=== PATIENT | male | born 1960 | race Caucasian/White ===

== ENCOUNTER 2022-12-17 09:52 | Outpatient (OUT) | payer BC, SELFPAY | END 2022-12-17 09:53 | LOC: WC 09:53 | PROVIDERS: PCP Family Medicine; Visit Provider Podiatrist Foot & Ankle Surgery | DX: S91.001D Unspecified open wound, right ankle, subsequent encounter (principal); L97.519 Non-pressure chronic ulcer of other part of right foot with unspecified severity | CPT/HCPCS: 10060; 36415; 80048; 85025; 85652; 86140; 87070; 87205; A6213 ==

== ENCOUNTER 2022-12-17 11:31 | Outpatient (OUT) | payer BC, SELFPAY ==
[2022-12-17 12:26] LABS: Basophils Absolute Auto 0.1 10^3/uL (0.0-0.1); Basophils Percent Auto 0.6 % (0.2-2.0); Eosinophils Absolute Auto 0.1 10^3/uL (0.0-0.7); Hematocrit 38.5 % (42.0-54.0); Hemoglobin 11.8 g/dL (14.0-18.0); Immature Granulocytes Abs Auto 0.04 10^3/uL (0.00-0.03); Immature Granulocytes Pct Auto 0.5 % (0.0-0.5); Lymphocytes Absolute Auto 1.3 10^3/uL (1.2-3.8); Lymphocytes Percent Auto 14.8 % (20.5-60.0); Mean Corpuscular HGB Conc 30.6 g/dL (29.9-35.2); Mean Corpuscular Hemoglobin 25.1 pg (25.9-34.0); Mean Corpuscular Volume 81.9 fL (80.0-94.0); Mean Platelet Volume 9.5 fL (9.5-13.5); Monocytes Absolute Auto 0.9 10^3/uL (0.3-0.8); Monocytes Percent Auto 10.2 % (1.7-12.0); Neutrophils Absolute Auto 6.3 10^3/uL (1.4-6.5); Neutrophils Percent Auto 72.9 % (43.0-75.0); Platelet Count 375 10^3/uL (150-450); Red Cell Distribution Width 14.6 % (11.0-15.0); White Blood Count 8.6 10^3/uL (4.0-11.0)
[2022-12-17 12:30] LABS: Anion Gap 10.9; BUN Creatinine Ratio 17.3; C Reactive Protein 54.3 mg/dL (<=1.0); Calcium 9.6 mg/dL (8.5-10.1); Carbon Dioxide 29.5 mmol/L (21.0-32.0); Chloride 104 mmol/L (98-107); Estimated GFR (African America >60 (>=60); Estimated GFR (Non-African Ame >60 (>=60); Glucose 96 mg/dL (74-106); Potassium 4.4 mmol/L (3.5-5.1); Sodium 140 mmol/L (136-145)
[2022-12-17 12:57] LABS: Erythrocyte Sedimentation Rate 121 mm/hr (<=20)
== END 2022-12-17 11:32 ==
LOC: LAB 11:34
PROVIDERS: PCP Family Medicine; Visit Provider Student in an Organized Health Care Education/Training Program
DX: L97.519 Non-pressure chronic ulcer of other part of right foot with unspecified severity (principal)
CPT/HCPCS: 36415; 80048; 85025; 85652; 86140; 87070; 87205; A6213

== ENCOUNTER 2022-12-22 10:00 | Outpatient (OUT) | payer BC, SELFPAY | END 2022-12-22 10:01 | LOC: WC 10:00 | PROVIDERS: PCP Family Medicine; Visit Provider Podiatrist Foot & Ankle Surgery | DX: L97.512 Non-pressure chronic ulcer of other part of right foot with fat layer exposed (principal); M06.9 Rheumatoid arthritis, unspecified; M20.11 Hallux valgus (acquired), right foot; M19.071 Primary osteoarthritis, right ankle and foot; M86.471 Chronic osteomyelitis with draining sinus, right ankle and foot; M76.821 Posterior tibial tendinitis, right leg; R60.0 Localized edema; R26.89 Other abnormalities of gait and mobility | CPT/HCPCS: 99212; G0463 ==

== ENCOUNTER 2022-12-24 10:05 | Outpatient (OUT) | payer BC, SELFPAY ==
--- NOTE | 2022-12-24 10:09 | CT_ITS ---
[place] [id number] Patient Name: ANDRE WIGGINS MRN: [id number] date: 1960 Sex: M Assigned Patient Location: CT Current Patient Location: CT Accession/Order Number: [id number] Exam Date: 12/24/2022 10:25 Report Date: 12/24/2022 15:56 At the request of: MARCIA ISABEL Procedure: CT ankle RT wo con EXAMINATION: CT ankle RT wo con HISTORY: Broken Hardware T84.213 COMPARISON: XR ankle right 12/09/2022, CT ankle right 09/25/2022 TECHNIQUE: Multi-planar CT images were created without IV contrast. Dose reduction techniques were achieved by using automated exposure control and/or adjustment of mA and/or kV according to patient size and/or use of iterative reconstruction technique. FINDINGS: BONES: Advanced destructive changes of the ankle joint, hindfoot, and midfoot. Prosthetic spacer replacing the talus. Mechanical fusion of ankle joint via dorsal plate which is fractured at site of third screw from the cephalad margin fracture and displacement of the fifth screw from the cephalad margin. Intact screw securing the plate to the calcaneus. Advanced sclerotic changes and cortical thickening of the distal tibia and fibula. SOFT TISSUES: Prominent soft tissue edema surrounding the distal lower extremity, ankle, and proximal foot. EFFUSION: None visible. OTHER: Negative. IMPRESSION: 1. Grossly stable advanced degenerative changes of the ankle, hindfoot, midfoot. 2. Fracture of the posterior plate and one of the screws bridging the posterior tibia-calcaneus. Electronically authenticated by: HAIDER ERWIN Date: 12/24/2022 15:56
== END 2022-12-24 10:06 ==
LOC: CT 10:06
PROVIDERS: Visit Provider Podiatrist Foot & Ankle Surgery
DX: T84.213A Breakdown (mechanical) of internal fixation device of bones of foot and toes, initial encounter (principal)
CPT/HCPCS: 73700

== ENCOUNTER 2023-01-11 10:04 | Outpatient (OUT) | payer BC, SELFPAY | END 2023-01-11 10:05 | disposition home or self-care (01) | LOC: WC 10:04 | PROVIDERS: Visit Provider Podiatrist Foot & Ankle Surgery | DX: M86.471 Chronic osteomyelitis with draining sinus, right ankle and foot (principal); M19.071 Primary osteoarthritis, right ankle and foot; S91.001D Unspecified open wound, right ankle, subsequent encounter; M25.771 Osteophyte, right ankle; M20.11 Hallux valgus (acquired), right foot; M76.821 Posterior tibial tendinitis, right leg; M13.80 Other specified arthritis, unspecified site; R60.0 Localized edema; R26.89 Other abnormalities of gait and mobility; I10 Essential (primary) hypertension; M06.9 Rheumatoid arthritis, unspecified; L97.512 Non-pressure chronic ulcer of other part of right foot with fat layer exposed | CPT/HCPCS: A6213; G0463 ==

== ENCOUNTER 2023-02-16 10:03 | Outpatient (OUT) | payer BC, SELFPAY ==
--- NOTE | 2023-02-16 | XR_ITS ---
The [address] [address] Patient Name: ANDRE WIGGINS MRN: [id number] date: 1960 Sex: M Assigned Patient Location: [facility] Current Patient Location: [facility] Accession/Order Number: [id number] Exam Date: 02/16/2023 10:10 Report Date: 02/16/2023 11:04 At the request of: MARCIA ISABEL Procedure: XR ankle RT min 3V PROCEDURE: XR ankle RT min 3V HISTORY: RIGHT ANKLE PAIN ; postop fusion revision COMPARISON: XR ankle right 12/09/2022 FINDINGS: BONES:Mechanical fusion of the ankle joint via posterior plate and screws; fracture of the plate and one of the screws, and slight backing out of the second most distal screw. Prosthetic spacer replacing the talus. Complete collapse of the plantar arch and advanced degenerative/destructive changes of the midfoot. SOFT TISSUES:Prominent soft tissue swelling surrounding the ankle. EFFUSION:None visible. OTHER: Negative. XR/XR ankle RT min 3V IMPRESSION: 1. Grossly stable advanced degenerative changes and stable hardware failure. Electronically authenticated by: HAIDER ERWIN Date: 02/16/2023 11:04
== END 2023-02-16 10:04 | disposition home or self-care (01) ==
PROVIDERS: Visit Provider Podiatrist Foot & Ankle Surgery
DX: M19.071 Primary osteoarthritis, right ankle and foot (principal)
CPT/HCPCS: 73610

== ENCOUNTER 2023-02-21 10:08 | Outpatient (OUT) | payer BC, SELFPAY ==
--- NOTE | 2023-02-21 10:18 | CT_ITS ---
The [address] [address] Patient Name: ANDRE WIGGINS MRN: [id number] date: 1960 Sex: M Assigned Patient Location: CT Current Patient Location: CT Accession/Order Number: [id number] Exam Date: 02/21/2023 10:37 Report Date: 02/21/2023 11:51 At the request of: ELTON MARQUES Procedure: CT ankle RT wo con CT scan right ankle without contrast 02/21/2023. HISTORY:Chronic right ankle pain since undergoing surgery on the ankle in December 2021. Pseudarthrosis after fusion M96.0 COMPARISON: The scan right ankle 09/25/2022 and 12/24/2022 and radiographs right ankle 11/17/2022 and 02/16/2023. TECHNIQUE: Multiple contiguous axial CT images of the right ankle were obtained without contrast. Sagittal and coronal reformatted images were made. Dose reduction techniques were achieved by using automated exposure control and/or adjustment of mA and/or kV according to patient size and/or use of iterative reconstruction technique. FINDINGS: There are postsurgical changes again seen from prior resection of the lateral malleolus. There is osseous fusion again seen across the majority of the distal tibiofibular syndesmosis. There are postsurgical changes again seen from prior posterior fusion surgery across the posterior aspect of the ankle at the level of the distal tibia with the posterior calcaneus. However, there is redemonstration of disruption of the orthopedic plate at the level the distal tibial metaphysis and there are large areas of lucency again seen surrounding the distal 2 screws within the distal tibial metadiaphysis and there are large lucencies also seen surrounding the 2 screws within the posterior calcaneus. There is redemonstration of a fracture of one of the screws in the distal tibial metadiaphysis. A pes planovalgus deformity is again seen. There is redemonstration 7of prior resection of the majority of the talus and the majority of the navicular. There is a large ovoid radiopaque spacer again seen interposed between the distal tibia and the remaining portion of the calcaneus. There is no significant osseous fusion between the distal tibia and the calcaneus. There is redemonstration of osseous fusion across the majority of the calcaneocuboid joint. There are moderate to severe degenerative changes again seen at the articulation of the navicular with the cuneiform bones. There is moderate to severe joint space narrowing again seen of the first tarsometatarsal joint and there is a similar appearance of partial osseous fusion across approximately 10% of this joint. There is a large plantar calcaneal enthesophyte again seen. There is diffuse soft tissue swelling again seen surrounding the ankle. The distal Achilles tendon is again not clearly visualized beyond the level of the distal tibial diaphysis. Since the prior CT scan there has been development of an ovoid low-density collection posterior to the distal tibial metadiaphysis. This measures 2.0 x 3.6 x 3.9 cm in AP, transverse and craniocaudal dimension respectively. This is best seen on the soft tissue window images. There is a similar appearance of diffuse chronic periosteal reaction surrounding the distal tibial metadiaphysis and distal fibular diaphysis and metadiaphysis. CT/CT ankle RT wo con IMPRESSION: 1. Since the prior CT scan of 12/24/2022 there has been development of an ovoid low-density collection posterior to the distal tibial metadiaphysis with measurements provided above. Differential diagnostic considerations for this collection primarily include an abscess or seroma. Correlation as to possible signs and symptoms of an infection in this region is recommended. 2. There is a similar appearance of failure of the fusion hardware along the posterior aspect of the distal tibia with the posterior calcaneus with loosening of multiple screws involving the distal tibia and the calcaneus as described above. There is no significant osseous fusion between the distal tibia and the calcaneus. 3. There is a similar appearance of other postsurgical and degenerative changes of the remainder of the midfoot/ankle as described above. 4. 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 This report was placed in the wet read folder to be faxed and called to the referring clinician's office (Elton Marques) on the afternoon of 02/21/2023 shortly after the study was presented for interpretation. Electronically authenticated by: CAROLINA DEMPSEY Date: 02/21/2023 11:51
== END 2023-02-21 10:09 | disposition home or self-care (01) ==
LOC: CT 10:09
PROVIDERS: Visit Provider Podiatrist Foot & Ankle Surgery
DX: M96.0 Pseudarthrosis after fusion or arthrodesis (principal)
CPT/HCPCS: 73700

== ENCOUNTER 2023-03-03 10:15 | Outpatient (OUT) | payer BC, SELFPAY ==
--- NOTE | 2023-03-03 | XR_ITS ---
The [address] [address] Patient Name: ANDRE WIGGINS MRN: [id number] date: 1960 Sex: M Assigned Patient Location: RAD Current Patient Location: Accession/Order Number: [id number] Exam Date: 03/03/2023 13:10 Report Date: 03/04/2023 01:39 At the request of: DENIS TRAN Procedure: XR foot RT min 3V PROCEDURE: XR ankle RT min 3V, XR foot RT min 3V HISTORY: RIGHT ANKLE PAIN COMPARISON: XR ankle right 02/16/2023 FINDINGS: BONES:Prior mechanical fusion of the ankle joint via dorsal plate and screws with known fracture of the plate and the fifth screw from the top. The proximal portion of the fractured screw is now displaced from the plate Posteriorly. Stable mild backing out of the sixth screw from the top. Prosthetic spacer replacement of the talus, unchanged. Advanced degenerative changes the midfoot and complete collapse of plantar arch. SOFT TISSUES:Soft tissue swelling surrounding the ankle and proximal foot; increased since prior study. EFFUSION:None visible. OTHER: Negative. XR/XR foot RT min 3V IMPRESSION: 1. Further progression of hardware failure as detailed above. 2. Increased soft tissue swelling; edema versus inflammatory. Chronic advanced degenerative changes of the midfoot. Electronically authenticated by: HAIDER ERWIN Date: 03/04/2023 01:39
--- NOTE | 2023-03-03 | XR_ITS ---
The [address] [address] Patient Name: ANDRE WIGGINS MRN: [id number] date: 1960 Sex: M Assigned Patient Location: [facility] Current Patient Location: Accession/Order Number: [id number] Exam Date: 03/03/2023 13:10 Report Date: 03/04/2023 01:39 At the request of: DENIS TRAN Procedure: XR ankle RT min 3V PROCEDURE: XR ankle RT min 3V, XR foot RT min 3V HISTORY: RIGHT ANKLE PAIN COMPARISON: XR ankle right 02/16/2023 FINDINGS: BONES:Prior mechanical fusion of the ankle joint via dorsal plate and screws with known fracture of the plate and the fifth screw from the top. The proximal portion of the fractured screw is now displaced from the plate Posteriorly. Stable mild backing out of the sixth screw from the top. Prosthetic spacer replacement of the talus, unchanged. Advanced degenerative changes the midfoot and complete collapse of plantar arch. SOFT TISSUES:Soft tissue swelling surrounding the ankle and proximal foot; increased since prior study. EFFUSION:None visible. OTHER: Negative. XR/XR ankle RT min 3V IMPRESSION: 1. Further progression of hardware failure as detailed above. 2. Increased soft tissue swelling; edema versus inflammatory. Chronic advanced degenerative changes of the midfoot. Electronically authenticated by: HAIDER ERWIN Date: 03/04/2023 01:39
== END 2023-03-03 10:16 | disposition home or self-care (01) ==
LOC: RAD 10:16
PROVIDERS: Visit Provider Physician Assistant
DX: L02.611 Cutaneous abscess of right foot (principal); M19.071 Primary osteoarthritis, right ankle and foot; M79.671 Pain in right foot
CPT/HCPCS: 73610; 73630; 87070; 87150; 87186; 87205

== ENCOUNTER 2023-03-03 14:25 | Observation (INO) | payer BC, SELFPAY ==
--- NOTE | 2023-03-03 14:31 | ED.GENADUL1 ---
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 Patient was seeing his local foot and ankle specialist for swelling and pain to the right ankle. He had his most recent surgery for revision of her right ankle replacement one year ago. He states in the last week he has had increasing pain and swelling. No fevers or vomiting. He has no history of diabetes. He had a seroma drained in the office with wound cultures obtained. He was referred to the Emergency Room for IV placement, antibiotics and admission for further evaluation and treatment per podiatry consult. Patient has no pain at this time, he is comfortable on arrival to the Emergency Room. Related Data Home Medications Medication Instructions Recorded Confirmed allopurinol 100 mg tablet 100 mg PO DAILY 03/03/23 03/03/23 celecoxib 200 mg capsule 200 mg PO BID 03/03/23 03/03/23 cephalexin 500 mg capsule 500 mg PO Q12H 03/03/23 03/03/23 metoprolol succinate 50 mg 75 mg PO DAILY 03/03/23 03/03/23 tablet,extended release 24 hr tamsulosin 0.4 mg capsule 0.4 mg PO BEDTIME 03/03/23 03/03/23 tramadol 50 mg tablet 50 mg PO Q8H PRN pain 03/03/23 03/03/23 Allergies Allergy/AdvReac Type Severity Reaction Status Date / Time Penicillins Allergy Unknown Unknown Verified 03/03/23 14:45 Review of Systems ROS Constitutional Denies: fever or chills Cardiovascular Denies: chest pain Respiratory Denies: shortness of breath or cough Gastrointestinal Denies: nausea or vomiting Musculoskeletal Denies: back pain Integumentary/Breast Denies: rash Hematologic/Lymphatic Denies: easy bruising Allergic/Immunologic Denies: hives Exam Narrative Exam Narrative: Gen.: Awake, alert, in no distress Head: Normocephalic, atraumatic ENT: Moist mucous membranes Respiratory: No respiratory distress Extremities: Right ankle with dressing in place, well-healed surgical incision to the right anterior ankle, no redness or red streaking of the ankle. Mild serous drainage noted through the dressing. Patient is able to wiggle the toes. Psych: Normal mood and affect Neuro: No focal neuro deficit Skin: Warm, dry, intact Constitutional Vital Signs, click to edit/add: Last Vital Signs Temp 98.6 F 03/03/23 14:40 Pulse 69 03/03/23 14:40 Resp 20 03/03/23 14:40 BP 134/95 H 03/03/23 14:40 Pulse Ox 98 03/03/23 14:40 O2 Del Method Room Air 03/03/23 14:40 Course Vital Signs Vital signs: Vital Signs Temperature 98.6 F 03/03/23 14:40 Pulse Rate 69 03/03/23 14:40 Respiratory Rate 20 03/03/23 14:40 Blood Pressure 134/95 H 03/03/23 14:40 Pulse Oximetry 98 03/03/23 14:40 Oxygen Delivery Method Room Air 03/03/23 14:40 Temperature 98.6 F 03/03/23 14:40 Pulse Rate 69 03/03/23 14:40 Respiratory Rate 20 03/03/23 14:40 Blood Pressure 134/95 H 03/03/23 14:40 Pulse Oximetry 98 03/03/23 14:40 Oxygen Delivery Method Room Air 03/03/23 14:40 Medical Decision Making MDM Narrative Medical decision making narrative: IV was established with labs, blood cultures obtained. Wound cultures were obtained in podiatry office prior to arrival, x-rays were also obtained prior to arrival. Patient was treated with Levaquin and vancomycin, he is ALLERGIC to penicillin. I discussed this with the hospitalist, Dr. Eugene, who accepted the admission with podiatry consult. Patient is stable at this time. Medical Records Medical records reviewed: Yes I reviewed the patient's medical records Lab Data Labs: Lab Results 03/03/23 Range/Units 15:04 WBC 8.5 (4.0-11.0) 10^3/uL RBC 4.27 L (4.70-6.10) 10^6/uL Hgb 11.2 L (14.0-18.0) g/dL Hct 35.1 L (42.0-54.0) % MCV 82.2 (80.0-94.0) fL MCH 26.2 (25.9-34.0) pg MCHC 31.9 (29.9-35.2) g/dL RDW 15.2 H (11.0-15.0) % Plt Count 368 (150-450) 10^3/uL MPV 9.3 L (9.5-13.5) fL Neut % (Auto) 77.1 H (43.0-75.0) % Lymph % (Auto) 14.0 L (20.5-60.0) % [place] % (Auto) 6.8 (1.7-12.0) % Eos % (Auto) 1.2 (0.9-7.0) % Baso % (Auto) 0.5 (0.2-2.0) % Neut # (Auto) 6.6 H (1.4-6.5) 10^3/uL Lymph # (Auto) 1.2 (1.2-3.8) 10^3/uL [place] # (Auto) 0.6 (0.3-0.8) 10^3/uL Eos # (Auto) 0.1 (0.0-0.7) 10^3/uL Baso # (Auto) 0.0 (0.0-0.1) 10^3/uL Abs Immat Gran (auto) 0.03 (0.00-0.03) 10^3/uL Imm/Tot Granulo (auto) 0.4 (0.0-0.5) % ESR 123 H (<=20) mm/hr PT 11.8 H (9.0-11.6) sec INR 1.12 APTT 40.8 H* (22.3-36.2) sec Sodium 140 (136-145) mmol/L Potassium 3.8 (3.5-5.1) mmol/L Chloride 103 (98-107) mmol/L Carbon Dioxide 26.5 (21.0-32.0) mmol/L Anion Gap 14.3 BUN 18.0 (7.0-18.0) mg/dL Creatinine 0.88 (0.70-1.30) mg/dL Est GFR ( Amer) >60 (>=60) Est GFR (Non-Af Amer) >60 (>=60) BUN/Creatinine Ratio 20.5 Glucose 95 (74-106) mg/dL Lactate 0.9 (0.4-2.0) mmol/L Calcium 9.3 (8.5-10.1) mg/dL Total Bilirubin 0.9 (0.2-1.0) mg/dL AST 27 (15-37) U/L ALT 34 (16-63) U/L Alkaline Phosphatase 90 (46-116) U/L C-Reactive Protein 16.3 H (<=1.0) mg/dL Total Protein 8.4 H (6.4-8.2) g/dL Albumin 3.3 L (3.4-5.0) g/dL Globulin 5.1 g/dL Albumin/Globulin Ratio 0.6 Discharge Plan Discharge Chief Complaint: Extremity Problem, Nontraumatic Clinical Impression: Postoperative infection Patient Disposition: Admitted As Inpatient Time of Disposition Decision: 14:57 Condition: Good
[2023-03-03 14:40] VITALS: BP 134/95; PULSE 69; RESP 20; TEMP 37; O2SAT 98; BMI 39.3
[2023-03-03] MEDS: 0.9 % SODIUM CHLORIDE 1,000 ML 999 ML IV (15:07)
[2023-03-03] MEDS: VANCOMYCIN HCL 1,500 MG in 0.9 % SODIUM CHLORIDE 500 ML 250 MG IV (15:07)
[2023-03-03 15:20] LABS: Basophils Percent Auto 0.5 % (0.2-2.0); Eosinophils Absolute Auto 0.1 10^3/uL (0.0-0.7); Eosinophils Percent Auto 1.2 % (0.9-7.0); Hematocrit 35.1 % (42.0-54.0); Hemoglobin 11.2 g/dL (14.0-18.0); Immature Granulocytes Abs Auto 0.03 10^3/uL (0.00-0.03); Immature Granulocytes Pct Auto 0.4 % (0.0-0.5); Lymphocytes Absolute Auto 1.2 10^3/uL (1.2-3.8); Mean Corpuscular HGB Conc 31.9 g/dL (29.9-35.2); Mean Corpuscular Hemoglobin 26.2 pg (25.9-34.0); Mean Corpuscular Volume 82.2 fL (80.0-94.0); Mean Platelet Volume 9.3 fL (9.5-13.5); Monocytes Absolute Auto 0.6 10^3/uL (0.3-0.8); Monocytes Percent Auto 6.8 % (1.7-12.0); Neutrophils Absolute Auto 6.6 10^3/uL (1.4-6.5); Neutrophils Percent Auto 77.1 % (43.0-75.0); Platelet Count 368 10^3/uL (150-450); Red Blood Count 4.27 10^6/uL (4.70-6.10); Red Cell Distribution Width 15.2 % (11.0-15.0); White Blood Count 8.5 10^3/uL (4.0-11.0)
[2023-03-03 15:32] LABS: Erythrocyte Sedimentation Rate 123 mm/hr (<=20); Lactate/Lactic Acid 0.9 mmol/L (0.4-2.0)
[2023-03-03 15:37] LABS: INR 1.12; Prothrombin Time 11.8 sec (9.0-11.6)
[2023-03-03 15:40] LABS: Partial Thromboplastin Time 40.8 sec (22.3-36.2)
[2023-03-03 15:42] LABS: Alanine Aminotransferase 34 U/L (16-63); Albumin Globulin Ratio 0.6; Albumin Level 3.3 g/dL (3.4-5.0); Alkaline Phosphatase 90 U/L (46-116); Anion Gap 14.3; Aspartate Amino Transferase 27 U/L (15-37); BUN Creatinine Ratio 20.5; Bilirubin Total 0.9 mg/dL (0.2-1.0); C Reactive Protein 16.3 mg/dL (<=1.0); Calcium 9.3 mg/dL (8.5-10.1); Carbon Dioxide 26.5 mmol/L (21.0-32.0); Chloride 103 mmol/L (98-107); Estimated GFR (African America >60 (>=60); Estimated GFR (Non-African Ame >60 (>=60); Globulin 5.1 g/dL; Glucose 95 mg/dL (74-106); Potassium 3.8 mmol/L (3.5-5.1); Sodium 140 mmol/L (136-145); Total Protein 8.4 g/dL (6.4-8.2)
[2023-03-03 16:18] VITALS: BP 133/83; PULSE 66; RESP 18; O2SAT 100
[2023-03-03 16:38] VITALS: BMI 24.7
[2023-03-03] MEDS: LEVOFLOXACIN IN DEXTROSE 5 % 750 MG/150 ML IV.SOLN 100 MG IV (17:30)
[2023-03-03 17:33] VITALS: BP 130/75; PULSE 69; RESP 18; TEMP 36.4; O2SAT 97
[2023-03-03] MEDS: LACTATED RINGER'S SOLUTION 1,000 ML 100 ML IV (19:05)
[2023-03-03] MEDS: ENOXAPARIN SODIUM 40 MG/0.4 ML SYRINGE SUBQ (19:06)
[2023-03-03 19:30] VITALS: O2SAT 97
[2023-03-03 19:35] VITALS: BP 145/72; PULSE 88; RESP 18; TEMP 36.8; O2SAT 97
--- NOTE | 2023-03-03 19:39 | PC.NURSE ---
dressing to right ankle CDI
[2023-03-03] MEDS: TAMSULOSIN HCL 0.4 MG CAPSULE PO (21:06)
[2023-03-03] MEDS: AZTREONAM 2 GM in 0.9 % SODIUM CHLORIDE 100 ML 100 MG IV (21:09)
[2023-03-03] MEDS: VANCOMYCIN HCL 1,000 MG in 0.9 % SODIUM CHLORIDE 250 ML 250 MG IV (22:10)
[2023-03-04] VITALS (14 sets, daily range): BP systolic 106–147; BP diastolic 75–88; PULSE 58–77; RESP 9–18; TEMP 36.2–36.7; O2SAT 94–100; BMI 24.7
[2023-03-04 04:55] LABS: Basophils Percent Auto 0.5 % (0.2-2.0); Eosinophils Absolute Auto 0.2 10^3/uL (0.0-0.7); Hematocrit 33.7 % (42.0-54.0); Hemoglobin 10.3 g/dL (14.0-18.0); Immature Granulocytes Abs Auto 0.02 10^3/uL (0.00-0.03); Immature Granulocytes Pct Auto 0.4 % (0.0-0.5); Lymphocytes Percent Auto 18.3 % (20.5-60.0); Mean Corpuscular HGB Conc 30.6 g/dL (29.9-35.2); Mean Corpuscular Hemoglobin 25.4 pg (25.9-34.0); Mean Corpuscular Volume 83.2 fL (80.0-94.0); Mean Platelet Volume 9.7 fL (9.5-13.5); Monocytes Absolute Auto 0.6 10^3/uL (0.3-0.8); Monocytes Percent Auto 9.9 % (1.7-12.0); Neutrophils Absolute Auto 3.9 10^3/uL (1.4-6.5); Neutrophils Percent Auto 67.9 % (43.0-75.0); Platelet Count 312 10^3/uL (150-450); Red Blood Count 4.05 10^6/uL (4.70-6.10); Red Cell Distribution Width 15.3 % (11.0-15.0); White Blood Count 5.7 10^3/uL (4.0-11.0)
[2023-03-04] MEDS: AZTREONAM 2 GM in 0.9 % SODIUM CHLORIDE 100 ML 100 MG IV (05:04)
[2023-03-04 05:10] LABS: Chloride 107 mmol/L (98-107); Sodium 141 mmol/L (136-145)
[2023-03-04 05:11] LABS: Alanine Aminotransferase 27 U/L (16-63); Albumin Globulin Ratio 0.6; Albumin Level 2.5 g/dL (3.4-5.0); Alkaline Phosphatase 73 U/L (46-116); Aspartate Amino Transferase 19 U/L (15-37); BUN Creatinine Ratio 16.7; Bilirubin Total 0.5 mg/dL (0.2-1.0); Calcium 8.5 mg/dL (8.5-10.1); Estimated GFR (African America >60 (>=60); Estimated GFR (Non-African Ame >60 (>=60); Globulin 4.3 g/dL; Glucose 107 mg/dL (74-106); Total Protein 6.8 g/dL (6.4-8.2)
[2023-03-04] MEDS: VANCOMYCIN HCL 1,000 MG in 0.9 % SODIUM CHLORIDE 250 ML 100 MG IV (06:02)
[2023-03-04] MEDS: METOPROLOL SUCCINATE 25 MG TAB.ER.24H 75 MG PO (09:18)
--- NOTE | 2023-03-04 09:43 | P.PODCN_ITS ---
[facility] - Podiatry Data of Consult Patient: known to practice within the last 3 years Consult date: 03/04/23 Requesting physician: Shaikh Valorie MD Primary care provider: Non-Staff Physician, Consult Narrative Reason for consult: right foot abscess Narrative: Patient is a 62-year-old male well-known to our office. Has had multiple reconstructive type procedures on the right foot and ankle most recently revisional right ankle and subtalar joint arthrodesis DOS 12/21/2021. He called in and presented to the office yesterday afternoon complaining of increased redness and swelling with drainage to the right ankle and foot. He did also complain of some pain along the medial aspect of his ankle and leg. An I&D was performed in office which produced about 200 cc of fluid. A culture was obtained from the office. He was recommended to the emergency department for concerns for abscess. He has been receiving Levaquin and vancomycin. This morning he states that he has not been having any pain in the right foot or ankle, however he has not tried to move or walk on it since he has been in house. He denies any other lower extremity complaints today. He denies any fever, chills, nausea, vomiting, shortness of breath, or chest pain. cc:: CC: Shaikh Valorie MD [facility] Medical History (Updated 03/04/23 @ 09:56 by Jovany Mckenzie DPM) Surgical History (Updated 03/03/23 @ 17:46 by Junie Parmar) (~09/2000) Social History (Updated 03/03/23 @ 17:43 by Junie Parmar) Within the past year, how often did you have a drink containing alcohol: monthly or less Within the past year, how many standard drinks containing alcohol did you have on a typical day: 1 or 2 Within the past year, how often did you have six or more drinks on one occasion: never Total score: 0 Score interpretation: A score less than 4 is consistent with normal alcohol consumption. Smoking status: Never smoker Non-prescribed substance use: denies use Previous occupational history: farmer general Highest level of school completed/degree received: Associate degree: academic program Exam Narrative Exam Narrative: Vascular: DP and PT pulses strongly palpable. CFT brisk to digits. Pedal hair growth intact. Mild erythema to medial midfoot and ankle. Skin temperature gradient is warm to warm on right lower extremity and warm to cool left lower extremity, with increased temperature noted around the medial right foot and ankle region. No ascending lymphangitis. Neuro: light touch and gross sensation intact. Derm: Fluctuant erythematous mass to medial midfoot with serosanguineous drainage. There is increased warmth focally and mild palpatory tenderness. No other open lesions noted. MSK: No discernible frontal or sagittal plane range of motion to the ankle or subtalar joint. No change in alignment. There is palpatory tenderness to the mass at the medial midfoot with palpable bony protuberance in the talar head and navicular region. X-ray: 3 views right foot and ankle were obtained yesterday in office and were again reviewed today. Shows increased midfoot collapse with cortical erosive changes to the plantar midfoot. Dorsal subluxation of the midfoot on the hindfoot. Posterior plate is broken consistent with previous films, however there is further backing out of posterior plate screws. Constitutional Vital Signs, click to edit/add: Last Vital Signs Temp 97.1 F L 03/04/23 04:37 Pulse 73 03/04/23 04:37 Resp 18 03/04/23 04:37 BP 133/75 03/04/23 04:37 Pulse Ox 100 03/04/23 04:37 O2 Del Method Room Air 03/04/23 04:37 Assessment and Plan Assessment and Plan (1) Abscess of right foot: (2) Subacute osteomyelitis, right ankle and foot: Plan Patient examined and evaluated. All findings were discussed with the patient and all questions answered to the patient's satisfaction. Labs and imaging reviewed. WBC 5.7, ESR elevated to 123 and CRP elevated to 16.3. Currently on vancomycin, received Levaquin last p.m. Additional 20 cc of serosanguineous drainage with minimal purulence was expressed today upon dressing removal. Clinical signs of abscess, with elevated ESR and CRP suggesting potential underlying osteomyelitis. Will add on the OR schedule today around 1330 for I&D with bone biopsy of the right foot. Has been n.p.o. since midnight Long-term management dependent upon presence and/or extent of underlying osteomyelitis, revisional fusion versus proximal amputation. He has been suggested very reluctant towards proximal amputation up to this point.
[2023-03-04] MEDS: LACTATED RINGER'S SOLUTION 1,000 ML 100 ML IV ×2 (11:18→13:26)
--- NOTE | 2023-03-04 12:36 | DIETREC ---
Nutrition Recommendations: 1. Add Trung 1 packet BID.
--- NOTE | 2023-03-04 12:36 | PM.HP ---
H&P: HPI History of Present Illness Chief complaint: Right foot infection/ abscess Narrative: 62 y o male was sent from Podiatry clinic for worsening right ankle/foot pain after CT scan demonstrated fluid collection along with osteomyelitis of right ankle/foot Patient had ankle replacement last year in 10/07. He then needed revision and partial removal of hardware in December. Since then he was doing well until a couple of days ago he noticed to have increased swelling/pain with drainage. Denies fever/chills. He is chronically on Keflex for his Ankle joint. Admitted overnight for prosthetic joint infection/abscess and osteomyelitis and was started on Broad spectrum abx. Reports feeling well today. Pain is controlled and denies any active complaints. Review of Systems ROS Status of ROS 10 or more systems reviewed and unremarkable except as noted in history and below [facility] Medical History (Updated 03/04/23 @ 12:49 by Shaikh Valorie MD) Surgical History (~09/2000) Social History Within the past year, how often did you have a drink containing alcohol: monthly or less Within the past year, how many standard drinks containing alcohol did you have on a typical day: 1 or 2 Within the past year, how often did you have six or more drinks on one occasion: never Total score: 0 Score interpretation: A score less than 4 is consistent with normal alcohol consumption. Smoking status: Never smoker Non-prescribed substance use: denies use Previous occupational history: sheep farmer Highest level of school completed/degree received: Associate degree: academic program Meds Home Medications and Allergies Home Medications Medication Instructions Recorded Confirmed Type allopurinol 100 mg tablet 100 mg PO DAILY 03/03/23 03/03/23 History celecoxib 200 mg capsule 200 mg PO BID 03/03/23 03/03/23 History cephalexin 500 mg capsule 500 mg PO Q12H 03/03/23 03/03/23 History metoprolol succinate 50 mg 75 mg PO DAILY 03/03/23 03/03/23 History tablet,extended release 24 hr tamsulosin 0.4 mg capsule 0.4 mg PO BEDTIME 03/03/23 03/03/23 History tramadol 50 mg tablet 50 mg PO Q8H PRN pain 03/03/23 03/03/23 History Allergies Allergy/AdvReac Type Severity Reaction Status Date / Time Penicillins Allergy Unknown Unknown Verified 03/03/23 17:46 Exam Constitutional Vital Signs, click to edit/add: Last Vital Signs Temp 97.1 F L 03/04/23 04:37 Pulse 73 03/04/23 04:37 Resp 18 03/04/23 04:37 BP 133/75 03/04/23 04:37 Pulse Ox 100 03/04/23 04:37 O2 Del Method Room Air 03/04/23 11:06 O2 Flow Rate 98 03/04/23 11:06 Documenting provider has reviewed patient's vital signs: yes Common normals: no apparent distress and oriented x3 HENMT Common normals: normocephalic and head/scalp atraumatic Head and scalp: normocephalic and atraumatic Eye Common normals: conjunctivae normal and no scleral icterus Conjunctiva: conjunctiva(e) normal Respiratory Common normals: normal respiratory effort and clear to auscultation bilaterally Auscultation: clear to auscultation bilaterally Cardio Common normals: regular rate, regular rhythm, S1 normal heart sound and S2 normal heart sound Rate: regular rate Rhythm: regular rhythm Heart sounds: S1 normal and S2 normal GI Common normals: Normal to inspection, nondistended, normoactive bowel sounds present, soft to palpation, non-tender and no hepatosplenomegaly Palpation: soft and no hepatosplenomegaly Extremity General: other findings (right foot recently dressed by Podiatry after bedside I&D. Not removed) Neuro Common normals: oriented x3, moves all extremities, no focal motor deficits and no sensory deficits noted Psych Psychiatry clinicians, please identify where your Mental Status Exam is documented: Mental Status Exam documented in the separate MSE Common normals: mental status grossly normal, thought process normal, denies hallucinations, denies homicidal ideation and denies suicidal ideation Thought process: normal thought process Results Labs Labs: Short CBC 03/03/23 03/04/23 Range/Units 15:04 04:37 WBC 8.5 5.7 (4.0-11.0) 10^3/uL Hgb 11.2 L 10.3 L (14.0-18.0) g/dL Hct 35.1 L 33.7 L (42.0-54.0) % Plt Count 368 312 (150-450) 10^3/uL BMP 03/03/23 03/04/23 15:04 04:37 Sodium 140 141 Potassium 3.8 4.0 Chloride 103 107 Carbon Dioxide 26.5 28.0 BUN 18.0 14.0 Creatinine 0.88 0.84 Glucose 95 107 H Calcium 9.3 8.5 Liver Function 03/03/23 03/04/23 Range/Units 15:04 04:37 Total Bilirubin 0.9 0.5 (0.2-1.0) mg/dL AST 27 19 (15-37) U/L ALT 34 27 (16-63) U/L Alkaline Phosphatase 90 73 (46-116) U/L Albumin 3.3 L 2.5 L (3.4-5.0) g/dL Assessment and Plan Assessment and Plan (1) Abscess of right foot: (2) Subacute osteomyelitis, right ankle and foot: (3) Infection of prosthetic joint: Qualifiers: Encounter type: subsequent encounter Qualified Code(s): T84.50XD - Infection and inflammatory reaction due to unspecified internal joint prosthesis, subsequent encounter (4) BPH (benign prostatic hyperplasia): Assessment and Plan: On Flomax. C/w same. Plan Right foot abscess, prosthetic joint infection and osteomyelitis. Podiatry on consult and patient is scheduled to go to OR today for I&D, and possibly removal of hardware. On IV vancomycin/Aztroenam. F/u OR and bone cx. Hemodynamically stable. Anticipate to stay for 2-3 days for Abx, monitoring and suspect will need staged procedure after I&D today during hospital stay for his infection.
[2023-03-04 13:20] LABS: Glucometer 86 mg/dL (74-106)
--- NOTE | 2023-03-04 14:35 | P.ORON_ITS ---
Brief Operative Note Date of procedure: 03/04/23 Pre-op diagnosis: right foot abscess with cellulitis, chronic osteomyelitis Post-op diagnosis: same as pre-op Procedure: procedure perforrmed: Incision and drainage of deep abscess with bone biopsy, right foot Intraoperative findings: Large fluid collection with serosanguineous drainage and a small amount of purulence noted over the medial hindfoot over the area of the navicular. Infection did communicate down to bone. Procedure in detail:Patient was identified in pre op and consent was reviewed. Correct side and site were identified and marked. Pre-op antibiotics were started. Patient was brought to OR suite and place on table in a supine position. General anesthesia was administered. Tourniquet applied. Operative extremity was prepped and draped in usual sterile fashion. Formal time-out was performed and the foot/ankle were elevated for several minutes and tourniquet inflated. incision was placed over the medial ankle and hindfoot extending along the medial column. Comminution sharp and blunt dissection gained access to the abscess and fluid collection which was predominantly serous sanguinous fluid but did have pus as well. Culture was obtained from the purulence. All nonviable soft tissue was excised sharply as well as with rongeurs. Surgical site was irrigated with 3 L normal saline and the tourniquet was deflated. Prompt hyperemic response is noted and the area was inspected closely to ensure all nonviable and questionable tissue was excised. The fluid collection/abscess did communicate down to bone before the bone was aggressively curetted and irrigated again. Then utilizing a Jamshidi needle bone biopsy was taken from the navicular cuneiform bones. Bone was relatively soft given patient's age and gender. Hemostasis was controlled and the incision was partially closed leaving a 3 cm opening which was packed with sterile gauze packing. Then a bulky dry sterile dressing was applied. Postoperative plan: Discharge home under family's care Post op instructions provided verbally and written prescription(s) were placed in chart partial protected weightbearing with use of crutches/walker and cam boot Follow-up in 1 week Implants: none Surgeon: Elton Marques High Density Press Operator: Jovany Mckenzie Estimated blood loss (mL): 25 Tourniquet time (min): 15 Pathology: other (bone and soft tissue swab) Condition: stable Disposition: PACU Preoperative Details Reason for procedure: it is a 62-year-old male well known to my practice was undergone multiple right foot surgeries and most recently had revision of tibiotalar calcaneal fusion which is complicated by chronic osteomyelitis and nonunion. Two weeks ago he presents my office relating to increasing pain in his ankle and given this is been ongoing discussion we did a very detailed conversation regarding need for below-knee amputation. Related to him that given the amount of surgeries that he has had and multiple cases of nonunion and recurrent infection that revision reconstruction is possible but extremely high risk and would require over three months of nonweightbearing and multiple surgeries. I spoke to him on the phone last week and he did not have a decision at that time and related that he would let me know this week what he decided. Fortunately he came into the office and was evaluated by staff and Diandra Eller PA-c. Patient had a large abscess on his medial hindfoot and local I and D was performed while in the office but given the amount of drainage as well as a size he was sent to the emergency department and ultimately was admitted under the hospitalist. Upon evaluation this morning patient had still some redness around the abscess site as well as purulent drainage therefore I recommended formal operative incision and drainage. Fortunately patient has been afebrile and hemodynamically stable with no leukocytosis. However, inflammatory markers were very high. He stated today that he feels fine overall and only has local pain to the area but is much improved as compared to twenty-four hours ago. Patient requesting to be discharged following the procedure
--- NOTE | 2023-03-04 14:58 | XR_ITS ---
The [address] [address] Patient Name: ANDRE WIGGINS MRN: [id number] date: 1960 Sex: M Assigned Patient Location: [place] Current Patient Location: [place] Accession/Order Number: [id number] Exam Date: 03/04/2023 15:20 Report Date: 03/04/2023 16:17 At the request of: RACHEL TAVERAS Procedure: XR foot RT min 3V EXAM: PLAIN FILM FOOT RIGHT HISTORY: 62 year old male with postop check TECHNIQUE: 3 views of the foot are submitted for review. COMPARISON: 03/03/2023 right foot. FINDINGS: Post op changes of the ankle are again demonstrated with mechanical fusion of the ankle joint via a dorsal plate and screws with sideplate and screws seen along the posterior tibia and calcaneus. The previously demonstrated fractured screw displaced rib plate posteriorly is better visualized on the prior exam. The C6 screw is again seen within the soft tissues posterior to the ankle. A prosthetic spacer replacement of the talus bone is relatively stable. Evaluation for Lisfranc injury is limited given the lack of standing views. Degenerative changes seen involving joint spaces. Mineralization is decreased. Soft tissues are diffusely edematous with subcutaneous air seen along the medial aspect of the forefoot. Interval increase in erosive change demonstrated involving the medial forefoot increased compared to prior exam.. No acute displaced fracture. XR/XR foot RT min 3V IMPRESSION: 1. Diffuse soft tissue swelling with air. Please correlate for cellulitis with Necrotizing fasciitis not excluded given that there is some subcutaneous air seen involving the medial soft tissues of the forefoot. 2. Erosive change of the medial forefoot concerning for acute on chronic osteomyelitis. Three-phase bone scan or MRI would help better delineate. 3. Relatively stable postoperative changes of the ankle with hardware failure again demonstrated. CRITICAL findings: Spoke with [facility] at 4:15 pm EST. She will communicate to the patient's surgeon. Electronically authenticated by: PHIL ROBLEDO Date: 03/04/2023 16:17
[2023-03-04] MEDS: MORPHINE SULFATE 2 MG/ML SYRINGE IV (15:05)
[2023-03-04 15:20] LABS: Glucometer 86 mg/dL (74-106)
[2023-03-04] MEDS: VANCOMYCIN HCL 1,000 MG in 0.9 % SODIUM CHLORIDE 250 ML 250 MG IV (16:36)
[2023-03-05 15:12] LABS: Vancomycin Trough 13.7 ug/mL (5.0-20.0)
--- NOTE | 2023-03-08 16:04 | CM.DCFOLLOWU ---
Person spoke with: patient How are you feeling? well How is your pain? no pain Did you understand your discharge instructions? yes Do you have any questions about your discharge instructions? no Were you given any prescriptions at discharge? yes Were you able to get your prescriptions filled? yes Do you understand how to take your medications as ordered? yes Do you have any questions about your follow up appointment and do you plan to keep your follow up appointment? no questions, had follow up with Dr. Marques today and it went well Is there anything else that you would like to discuss? no Questions/Comments/Concerns/Other:
== END 2023-03-04 17:54 | disposition home or self-care (01) ==
LOC: ER 14:57 → MS 03-04 08:12
PROVIDERS: Physician Assistant; Podiatrist Foot & Ankle Surgery; Admitting Provider Internal Medicine; Emergency Provider Emergency Medicine; Visit Provider Internal Medicine
PROC: (CPT 27603; principal; 2023-03-04 13:30)
DX: T84.59XA Infection and inflammatory reaction due to other internal joint prosthesis, initial encounter (principal); M86.271 Subacute osteomyelitis, right ankle and foot; M19.071 Primary osteoarthritis, right ankle and foot; Z96.661 Presence of right artificial ankle joint; L02.611 Cutaneous abscess of right foot; M79.671 Pain in right foot; B95.61 Methicillin susceptible Staphylococcus aureus infection as the cause of diseases classified elsewhere
CPT/HCPCS: 27603; 36415; 73610; 73630; 80053; 80202; 82948; 83605; 85025; 85610; 85652; 85730; 86140; 87040; 87070; 87102; 87116; 87150; 87186; 87205; 87206; 94761; 96365; 96366; 96367; 96372; 99285; 99999; G0378; J2704; J3370

== ENCOUNTER 2023-03-03 16:45 | Outpatient (REF) | payer BC, SELFPAY | END 2023-03-03 16:46 | disposition home or self-care (01) | LOC: LAB 16:45 | PROVIDERS: Visit Provider Physician Assistant | DX: L02.611 Cutaneous abscess of right foot (principal) | CPT/HCPCS: 87070; 87150; 87186; 87205 ==

== ENCOUNTER 2023-03-14 10:09 | Outpatient (OUT) | payer BC, SELFPAY | END 2023-03-14 10:10 | disposition home or self-care (01) | LOC: WC 10:09 | PROVIDERS: Visit Provider Physician Assistant | DX: S91.001A Unspecified open wound, right ankle, initial encounter (principal) | CPT/HCPCS: G0463 ==

== ENCOUNTER 2023-03-23 10:36 | Outpatient (OUT) | payer BC, SELFPAY | END 2023-03-23 10:37 | disposition home or self-care (01) | LOC: WC 10:36 | PROVIDERS: Visit Provider Podiatrist Foot & Ankle Surgery | DX: S91.001A Unspecified open wound, right ankle, initial encounter (principal) | CPT/HCPCS: G0463 ==

== ENCOUNTER 2023-04-06 10:09 | Outpatient (OUT) | payer BC, SELFPAY | END 2023-04-06 10:10 | disposition home or self-care (01) | LOC: WC 10:10 | PROVIDERS: Visit Provider Podiatrist Foot & Ankle Surgery | DX: S91.001A Unspecified open wound, right ankle, initial encounter (principal) | CPT/HCPCS: G0463 ==

== ENCOUNTER 2023-05-10 10:06 | Outpatient (OUT) | payer BC, SELFPAY | END 2023-05-10 10:07 | disposition home or self-care (01) | LOC: WC 10:06 | PROVIDERS: Visit Provider Podiatrist Foot & Ankle Surgery | DX: S91.001A Unspecified open wound, right ankle, initial encounter (principal) | CPT/HCPCS: G0463 ==

== ENCOUNTER 2023-06-17 11:13 | Outpatient (OUT) | payer BC, SELFPAY | END 2023-06-17 11:14 | disposition home or self-care (01) | LOC: WC 11:13 | PROVIDERS: Visit Provider Podiatrist Foot & Ankle Surgery | DX: L97.312 Non-pressure chronic ulcer of right ankle with fat layer exposed (principal) | CPT/HCPCS: 11042 ==